=== PATIENT | male | born 1965 | race Caucasian/White ===

== ENCOUNTER → 2021-12-13 | Outpatient (CLI) | payer BC ==
[~2021-12-13] MED LIST: CYCLOBENZAPRINE10 MG PO; NAPROSYN500 MG PO; PRILOSEC OTC20 MG PO; SYNTHROID50 MCG PO
== END ==
LOC: KOH-I 10:03
DX: R07.81 Pleurodynia (principal); J98.11 Atelectasis
CPT/HCPCS: 71101

== ENCOUNTER → 2022-03-21 | Outpatient (CLI) | payer BC | LOC: KOH-I 16:15 | DX: M25.561 Pain in right knee (principal) | CPT/HCPCS: 73562 ==

== ENCOUNTER → 2022-05-30 | Outpatient (CLI) | payer BC | LOC: KOH-I 16:07 | DX: R07.89 Other chest pain (principal) | CPT/HCPCS: 71046 ==

== ENCOUNTER → 2022-07-02 | Outpatient (CLI) | payer BC | LOC: KOH-I 16:21 | DX: F17.210 Nicotine dependence, cigarettes, uncomplicated (principal); R91.1 Solitary pulmonary nodule | CPT/HCPCS: 71271 ==